=== PATIENT | male | born 1955 | race American Indian/Alaskan Native ===

== ENCOUNTER 2016-07-25 22:27 | Emergency (ER) | payer BC ==
[2016-07-25 23:50] VITALS: BP 152/75
[2016-07-25] MEDS ORDERED: MOTRIN PO ONE (23:50)
--- NOTE | 2016-07-26 01:51 | Emergency Department Report ---
Abscess Boil HPI - HPI Chief Complaint: Skin/Abscess/Foreign Body Stated Complaint: BOILS Time Seen by Provider: 07/26/16 01:19 Duration: 3 Days Location: Lower Extremity History: Yes Pain, Yes Purulent Drainage (left lateral thigh), No Fever, No Numbness, No Foreign Body, No Previous History, No Insect Bite HPI: This is a 61-year-old male that presents with boils to the lower abdomen, left lateral thigh and scrotum for the past 3 days. Patient states those areas are tender to touch. Patient has history of diabetes and stated he is currently taking medication as prescribed through his primary care doctor. Patient stated he drank fruit juice, ate [employer], and drank apple juice at 7 PM. Patient denies any nausea vomiting, chest pain, numbness or tingling sensation, scrotal pain, fever, chills, headache, dizziness. Patient is nontoxic in appearance. No signs of distress noted. Patient is well-nourished. Home Medications: Previous Rx's Medication Instructions Recorded Last Taken Type Diazepam [Valium] 10 mg PO QDAY PRN #7 tablet 08/18/15 Unknown Rx Ibuprofen [Motrin 800 MG tab] 800 mg PO Q8HR PRN #20 tablet 08/18/15 Unknown Rx Sulfamethoxazole/Trimethoprim 1 each PO BID 7 Days 07/26/16 Unknown Rx [Bactrim DS TAB] Allergies/Adverse Reactions: Allergies Allergy/AdvReac Type Severity Reaction Status Date / Time No Known Allergies Allergy Verified 08/18/15 18:19 ED Review of Systems ROS: Stated complaint: BOILS Other details as noted in HPI Constitutional: denies: chills, fever Eyes: denies: eye pain, eye discharge, vision change ENT: denies: ear pain, throat pain Respiratory: denies: cough, shortness of breath, wheezing Cardiovascular: denies: chest pain, palpitations Endocrine: no symptoms reported Gastrointestinal: denies: abdominal pain, nausea, diarrhea Genitourinary: denies: urgency, dysuria Musculoskeletal: denies: back pain, joint swelling, arthralgia Skin: denies: rash, lesions Neurological: denies: headache, weakness, paresthesias Psychiatric: denies: anxiety, depression Hematological/Lymphatic: denies: easy bleeding, easy bruising ED Past Medical Hx - Past Medical History Hx Hypertension: No Hx CVA: No Hx Heart Attack/AMI: No Hx Congestive Heart Failure: No Hx Diabetes: Yes Hx Deep Vein Thrombosis: No Hx Pulmonary Embolism: No Hx GERD: No Hx Liver Disease: No Hx Renal Disease: No Hx Sickle Cell Disease: No Hx Arthritis: No Hx Headaches / Migraines: No Hx Seizures: No Hx Kidney Stones: No Hx Psychiatric Treatment: No Hx Asthma: No Hx COPD: No Hx Tuberculosis: No Hx Dementia: No Hx HIV: No - Surgical History Past Surgical History?: No Hx Coronary Stent: No Hx Open Heart Surgery: No Hx Pacemaker: No Hx Internal Defibrillator: No Hx Cholecystectomy: No Hx Appendectomy: No Hx Breast Surgery: No - Social History Smoking Status: Never Smoker Substance Use Type: None - Medications Home Medications: Home Medications Medication Instructions Recorded Confirmed Last Taken Type Diazepam [Valium] 10 mg PO QDAY PRN #7 tablet 08/18/15 Unknown Rx Ibuprofen [Motrin 800 MG tab] 800 mg PO Q8HR PRN #20 tablet 08/18/15 Unknown Rx Sulfamethoxazole/Trimethoprim 1 each PO BID 7 Days 07/26/16 Unknown Rx [Bactrim DS TAB] ED Abscess Boil Physical Exam - Exam General: Vital signs noted. No distress. Alert and acting appropriately. GENERAL: The patient is a well-developed, well-nourished male in no apparent distress. Patient is alert and oriented x3. VITAL SIGNS: Stable HEENT: Head is normocephalic and atraumatic. Extraocular muscles are intact. Pupils are equal, round, and reactive to light and accommodation. Nares appeared normal. Mouth is well hydrated and without lesions. Mucous membranes are moist. Posterior pharynx clear of any exudate or lesions. NECK: Supple. No carotid bruits. No lymphadenopathy or thyromegaly. LUNGS: Clear to auscultation. HEART: Regular rate and rhythm without murmur. ABDOMEN: Soft, nontender, and nondistended. Positive bowel sounds. No hepatosplenomegaly was noted. EXTREMITIES: Without any cyanosis, clubbing, rash, lesions or edema. NEUROLOGIC: Cranial nerves II through XII are grossly intact. PSYCHIATRIC: Flat affect, but denies suicidal or homicidal ideations. SKIN: No ulceration or induration present. Non-drainable firm 0.5 centimeter cellulitic abscess to lower abdomen and left lateral thigh. Firm nonfluctuant 1 cm boil in his scrotal area. Exam: Yes Surrounding Cellulites/Erythema (lower abdomen and left lateral thigh) , Yes Normal Neurologic Exam, Yes Normal Circulation, No Tenderness, No Fluctuance, No Lymphangitis, No Crepitation, No Heart Murmur Exam: Non-drainable firm 0.5 centimeter cellulitic abscess to lower abdomen and left lateral thigh. Firm nonfluctuant 1 cm boil in his scrotal area. ED Course Vital Signs 07/25/16 23:38 Temperature 99.6 F Pulse Rate 107 H Respiratory 20 Rate Blood Pressure 152/75 Blood Pressure 152/75 [Left] O2 Sat by Pulse 100 Oximetry - Reevaluation(s) Reevaluation #1: 07/26/16 01:53 Dr. Maynard was consulted and examined the patient. Agrees with discharge plan of care. Critical care attestation.: If time is entered above; I have spent that time in minutes in the direct care of this critically ill patient, excluding procedure time. ED Medical Decision Making - Medical Decision Making ED course: 61-year-old male that presents with non-drainable firm abscess to her lower abdomen, left lateral thigh, and scrotum 1- I instructed the patient to follow up with the primary care doctor in 2-3 days or if symptoms worsen such as fever, chills, increased swelling or edema to the area of abscesses. 2- patient received Bactrim DS for 7 days at the time of discharge. 3- patient agrees with discharge plan and treatment. Patient does not have any questions. Patient stated will follow up with his primary care doctor within 2 days. 4- at the time of discharge the patient does not seem toxic or ill in appearance. No signs of distress noted. ED Disposition Clinical Impression: Cellulitis Qualifiers: Site of cellulitis: unspecified site Qualified Code(s): L03.90 - Cellulitis, unspecified Disposition: DISCHARGED TO HOME OR SELFCARE Is pt being admited?: No Does the pt Need Aspirin: No Condition: Stable Instructions: Cellulitis (ED) Additional Instructions: Follow-up with your primary care doctor in 3-5 days If symptoms worsen such as fever and swelling report back to emergency room Take full course of antibiotics as prescribed Prescriptions: Sulfamethoxazole/Trimethoprim [Bactrim DS TAB] 1 each PO BID 7 Days Referrals: DALJIT SHARP [Other] - 3-5 Days Forms: Work/School Release Form(ED)
== END 2016-07-26 02:10 | disposition home or self-care (01) ==
LOC: ED 22:27
DX: L03.311 Cellulitis of abdominal wall (principal); E11.9 Type 2 diabetes mellitus without complications
CPT/HCPCS: 82962; 99283

== ENCOUNTER 2020-02-27 13:24 | Emergency (ER) | payer OTHER, BC ==
[2020-02-27 14:12] VITALS: BP 156/81
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
== END 2020-02-27 16:03 | disposition home or self-care (01) ==
LOC: ED 13:24
DX: S63.502A Unspecified sprain of left wrist, initial encounter (principal); E11.9 Type 2 diabetes mellitus without complications; Z79.1 Long term (current) use of non-steroidal anti-inflammatories (NSAID); Z79.899 Other long term (current) drug therapy; V49.49XA Driver injured in collision with other motor vehicles in traffic accident, initial encounter; Y93.89 Activity, other specified; Y92.410 Unspecified street and highway as the place of occurrence of the external cause; Y99.8 Other external cause status